=== PATIENT | female | born 1945 | race American Indian/Alaskan Native ===

== ENCOUNTER 2020-06-21 10:25 | Outpatient (CLI) | payer MEDICARE, BC ==
[2020-06-21 11:46] LABS: Alanine Aminotransferase 10 units/L (7-56); Albumin 4.3 g/dL (3.9-5); BUN/Creatinine Ratio 8; Blood Urea Nitrogen 7 mg/dL (7-17); Calcium 9.6 mg/dL (8.4-10.2); Hemolysis Index 2
[2020-06-21 11:59] LABS: Erythrocyte Sedimentation Rate 40 mm/Hr (0-20)
[2020-06-21 12:02] LABS: Hemoglobin 13.3 gm/dl (10.1-14.3); Mean Corpuscular HGB Conc 33 % (30-34); Mean Corpuscular Volume 86 fl (79-97); Platelet Count 266 K/mm3 (140-440); Red Blood Count 4.63 M/mm3 (3.65-5.03); Red Cell Distribution Width 13.8 % (13.2-15.2)
[2020-06-26 12:46] LABS: Vitamin D, 25-OH, D2 <4 ng/mL
== END 2020-06-21 10:26 | disposition home or self-care (01) ==
LOC: LAB 10:25
PROVIDERS: ATTEND Specialist
DX: G31.84 Mild cognitive impairment of uncertain or unknown etiology (principal); G62.9 Polyneuropathy, unspecified; R73.03 Prediabetes; A53.9 Syphilis, unspecified
CPT/HCPCS: 36415; 80053; 82306; 82607; 83036; 83921; 84443; 85027; 85652; 86592

== ENCOUNTER 2020-07-14 11:51 | Outpatient (CLI) | payer MEDICARE, BC | END 2020-07-14 11:52 | disposition home or self-care (01) | LOC: LAB 11:51 | PROVIDERS: ATTEND Specialist | DX: G45.9 Transient cerebral ischemic attack, unspecified (principal) | CPT/HCPCS: 36415; 85652; 86140 ==